=== PATIENT | male | born 1975 | race Asian ===

== ENCOUNTER 2016-12-14 11:27 | Emergency (ER) | payer OTHER ==
[2016-12-14] MEDS ORDERED: Ketorolac INJ* 30 MG/ML 1 ML VIAL IV PUSH ONE (13:12)
[2016-12-14] MEDS ORDERED: HYDROmorphone INJ* 1 MG/ML CARPUJECT SYRINGE IV SLOW PU ONE (13:17)
[2016-12-14] MEDS ORDERED: Ondansetron INJ* 2 MG/ML VIAL IV ONE (13:17)
--- NOTE | 2016-12-14 13:18 | ED ---
GI/ HPI - HPI Summary HPI Summary: 41 M presents with R sided flank pain that radiates to the front since 8 am. He admits to nausea and vomiting. He denies any diarrhea or constipation. He has not been able to urinate since the pain started. He said the pain radiates to his RLQ. He has experienced this pain in the same area a month ago that went away with a bath. He has had no previous abdominal surgeries. There is a language barrier present as he speaks romanian. - History of Current Complaint Chief Complaint: EDFlankPain Time Seen by Provider: 12/14/16 13:11 Stated Complaint: RIGHT FLANK PAIN Pain Intensity: 10 - Allergy/Home Medications Allergies/Adverse Reactions: Allergies Allergy/AdvReac Type Severity Reaction Status Date / Time No Known Allergies Allergy Verified 12/14/16 11:33 PMH/Surg Hx/FS Hx/Imm Hx Endocrine/Hematology History: Denies: Hx Anticoagulant Therapy Cardiovascular History: Denies: Hx Hypertension Infectious Disease History: No Infectious Disease History: Denies: Traveled Outside the [place] in Last 30 Days Review of Systems Negative: Fever Negative: Chest Pain Negative: Shortness Of Breath Positive: Abdominal Pain - RLQ, Vomiting, Nausea. Negative: Diarrhea Positive: flank pain - right sided All Other Systems Reviewed And Are Negative: Yes Physical Exam Triage Information Reviewed: Yes Vital Signs On Initial Exam: Initial Vitals Temp Pulse Resp BP Pulse Ox 97.0 F 81 18 122/82 100 12/14/16 11:29 12/14/16 11:29 12/14/16 11:29 12/14/16 11:29 12/14/16 11:29 Vital Signs Reviewed: Yes Appearance: Positive: Pain Distress Skin: Positive: Warm, Dry Head/Face: Positive: Normal Head/Face Inspection Eyes: Positive: Normal, Conjunctiva Clear ENT: Positive: Normal ENT inspection, Pharynx normal, TMs normal Respiratory/Lung Sounds: Positive: Clear to Auscultation, Breath Sounds Present Cardiovascular: Positive: Normal, RRR Abdomen Description: Positive: Soft, CVA Tenderness (R), Other: - mild tendereness in RLQ, neg obturator, psoas,. Negative: Distended, Guarding Diagnostics - Vital Signs Vital Signs Temp Pulse Resp BP Pulse Ox 12/14/16 11:29 97.0 F 81 18 122/82 100 - Laboratory Result Diagrams: 12/14/16 13:05 12/14/16 13:05 Lab Statement: Any lab studies that have been ordered have been reviewed, and results considered in the medical decision making process. - CT ab CT Interpretation: Positive (See Comments) - IMPRESSION: THERE ARE MULTIPLE SMALL BILATERAL RENAL CALCULI. IN ADDITION THERE IS A 4 MM CALCULUS IN THE DISTAL RIGHT URETER CAUSING [id number] HYDRONEPHROSIS. CT Interpretation Completed By: Radiologist Re-Evaluation - Re-Evaluation First Eval Re-Evaluation Time: 13:59 Change: Improved Comment: pain is gone, explained CT results Second Eval Re-Evaluation Time: 14:59 Change: Unchanged Comment: pain still gone, still unable to urinate Third Eval Re-Evaluation Time: 16:08 Change: Unchanged Comment: patient finally able to urinate, pain starting to return GIGU Course/Dx - Course Course Of Treatment: 41 M w/ no PMH presents with right sided flank pain since this morning. Admits to nausea and vomiting. has not been able to urinate, states pain radiates to the front in RLQ, ordered labs: WBC elevated but crp normal, CT abdomen: showed 4 mm kidney stone, normal appendix, pain managed with dialudid and toradol and zofran, unable to uriante gave 3 liters and was able to go, u/a normal will be d/c home, questions answered, patient and family agrees with plan - Diagnoses Differential Diagnoses - Male: Appendicitis, Ureteral Calculi, Urinary Tract Infection Provider Diagnoses: Kidney stone on right side Discharge - Discharge Plan Condition: Good Disposition: HOME Prescriptions: Ondansetron TAB* [Zofran Tab*] 4 mg PO Q6H PRN #16 tab PRN Reason: Nausea Tamsulosin CAP* [Flomax CAP*] 0.4 mg PO DAILY #7 cap oxyCODONE/Acetamin 5/325 MG* [Percocet 5/325 TAB*] 1 tab PO Q6H PRN #16 tab MDD 4 PRN Reason: Pain Patient Education Materials: Oxycodone/Acetaminophen (By mouth), Kidney Stones (ED) Referrals: Rupesh Robbins MD [Medical Doctor] - Additional Instructions: Take ibuprofen every 6 hours and narcotic as needed every 6 hours Inc fiber intake Take Zofran every 6 hours for nausea Take Flomax daily starting tomorrow, first dose given in ED until stone expelled , make sure stand up slowly Follow up with urology after stone passes Return to ED if unable to manage pain at home, develop fever, or any new or worsening symptoms
[2016-12-14] MEDS: NS 0.9% 1000 ML* 2,000 ML IV ONE (13:26)
[2016-12-14 13:29] LABS: ALT 18 U/L (7-52); AST 14 U/L (13-39); Albumin 4.2 g/dL (3.2-5.2); Alkaline Phosphatase 50 U/L (34-104); Anion Gap 9 mmol/L (2-11); BUN/Creatinine Ratio 9.4 (8-20); Blood Urea Nitrogen 12 mg/dL (6-24); CO2 Carbon Dioxide 27 mmol/L (22-32); Calcium 9.4 mg/dL (8.6-10.3); Chloride 102 mmol/L (101-111); EGFR African American 80.8 (>60); EGFR Non-African American 62.8 (>60); Globulin 2.8 g/dL (2-4); Glucose 123 mg/dL (70-100); Potassium 3.7 mmol/L (3.5-5.0); Sodium 138 mmol/L (133-145)
[2016-12-14 13:41] LABS: Hematocrit 46 % (42-52); Mean Corpuscular HGB Conc 33 g/dl (31-36); Mean Corpuscular Hemoglobin 28 pg (27-31); Mean Corpuscular Volume 85 fL (80-94); Mean Platelet Volume 8 um3 (7.4-10.4); Red Blood Count 5.39 10^6/ul (4.0-5.4); Red Cell Distribution Width 13 % (10.5-15); White Blood Count 13.8 10^3/ul (3.5-10.8)
--- NOTE | 2016-12-14 13:49 | RAD ---
INDICATION: Right flank abdominal pain. COMPARISON: There are no prior studies available for comparison. TECHNIQUE: A CT scan of the abdomen and pelvis was performed without intravenous or oral contrast. Contiguous axial sections were obtained from the lung bases through the symphysis pubis. Images were reconstructed in the coronal and sagittal planes. FINDINGS: There is mild dependent bilateral lower lobe subsegmental atelectasis. No pleural effusion is present. The liver and spleen are within normal limits in size without significant focal abnormality on this noncontrast study. No calcified gallstones are seen. The pancreas appears to be within normal limits in size. The adrenal glands appear to be within normal limits. There are multiple small bilateral renal calculi measuring between 1 and 3 mm. The right kidney is mildly enlarged. There is mild right perinephric stranding. There is dilatation of the right renal calyces pelvis and ureter to the level of a 4 mm calculus in the distal right ureter approximately 3 cm proximal to the ureterovesical junction. No bladder calculi are seen. The prostate gland is slightly enlarged measuring 5.2 cm in transverse dimension. The seminal vesicles are symmetrically enlarged bilaterally. The aorta is normal in caliber without significant calcific plaque. No significant enlarged retroperitoneal lymph nodes are seen. The stomach, small and large bowel appear nondistended. The appendix is within normal limits. There is no evidence for diverticulitis or colitis. No free intraperitoneal air or fluid is seen. No significant focal osseous abnormality is seen. IMPRESSION: THERE ARE MULTIPLE SMALL BILATERAL RENAL CALCULI. IN ADDITION THERE IS A 4 MM CALCULUS IN THE DISTAL RIGHT URETER CAUSING [id number] HYDRONEPHROSIS.
[2016-12-14] MEDS ORDERED: Tamsulosin CAP* 0.4 MG PO ONE (14:14)
[2016-12-14] MEDS ORDERED: NS 0.9% 1000 ML* 2,000 ML IV ONE (15:18)
[2016-12-14] MEDS ORDERED: NS 0.9% 1000 ML* 1,000 ML IV ONE (15:19)
[2016-12-14 16:01] LABS: Urine Bilirubin Negative (Negative); Urine Glucose Negative (Negative); Urine Nitrite Negative (Negative)
[2016-12-14] MEDS ORDERED: oxyCODONE/Acetamin 5/325 MG* TAB PO ONE (16:05)
[2016-12-14 16:35] VITALS: BP 121/78
== END 2016-12-14 16:33 | disposition home or self-care (01) ==
LOC: ED 11:27
DX: N20.0 Calculus of kidney (principal); R10.31 Right lower quadrant pain; R11.2 Nausea with vomiting, unspecified
CPT/HCPCS: 36415; 74176; 80053; 81003; 85025; 86141; 96374; 96375; 99283; A9270-GY; J1170; J1885; J2405

== ENCOUNTER → 2017-01-23 12:19 | Day surgery (SDC) | payer OTHER ==
--- NOTE | 2017-01-22 12:39 | HP ---
ADMITTING HISTORY AND PHYSICAL: DATE OF ADMISSION: 01/23/17 ADMITTING DIAGNOSES: 1. Calculus, right ureter. 2. Right hydronephrosis. PLANNED PROCEDURE: Right ureteroscopy, possible laser and stent insertion. SURGEON: Rupesh Robbins MD. 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 He had originally been scheduled for ureteroscopy in November, but thought at that time that he had passed the stone and the surgery was canceled. He then restarted having pain again and followup ultrasound revealed a 6 to 7 mm calculus in the right ureter. He has been on Flomax 0.4 mg in an effort to try and promote expulsion of the calculus, but the most recent ultrasound on January 22 revealed a persistent 7 mm calculus in the right distal ureter with right hydronephrosis. He was given the option of continuing conservative management, but as this has been going on for 4 to 6 weeks, he is now being brought in for right ureteroscopy, possible laser and stent insertion. PAST MEDICAL HISTORY: Unremarkable. Specifically, there is no history of diabetes mellitus or any other major systemic illness. MEDICATIONS: Medications on admission at this point is ibuprofen p.r.n. ALLERGIES: No known drug allergies. PAST SURGICAL HISTORY: Unremarkable. FAMILY HISTORY: Negative for kidney stones. SMOKING HISTORY: He is a nonsmoker. PHYSICAL EXAMINATION GENERAL: Reveals a pleasant healthy-appearing gentleman. VITAL SIGNS: Blood pressure 102/68, pulse 78 per minute, regular, temperature 97.3, oxygen saturation 97% on room air. CARDIOVASCULAR EXAM: Regular rate and rhythm. S1, S2. LUNGS: Clear bilaterally. ABDOMEN: Soft with mild right flank tenderness. IMPRESSION: A 41-year-old gentleman with episodic right-sided flank and bladder pain for the last 4 to 5 weeks secondary to what appears to be a 7-mm calculus in the right distal ureter with mild right hydronephrosis. PLAN: Right ureteroscopy, possible laser and stent insertion. [id number]/[facility] #: [id number] MTDD
[~2017-01-23 12:19] MED LIST: Acetaminophen TAB* 325 MG PO PRN; Buffered Lidocaine 1% SYR 3ML* 3 ML/SYR SYRINGE INTRADERM ONE; Dexamethasone IV* 4 MG/ML 1 ML (4 MG) ONE; DiMENhydriNATE IV* 50 MG/ML VIAL IV PUSH PRN; Famotidine IV* 10 MG/ML 2 ML (20 mg) IV ONE; Famotidine IV* 10 MG/ML 2 ML (20 mg) ONE; HYDROmorphone INJ* 1 MG/ML CARPUJECT SYRINGE IV PRN; Iohexol 180 (CONTRAST) 10 ML SDV IV ONE; Ketorolac INJ* 30 MG/ML 1 ML VIAL ONE; Lidocaine 2% PF * 5 ML VIAL ONE; Midazolam* 1 MG/ML 5 ML VIAL (5 MG) ONE; Ondansetron INJ* 2 MG/ML VIAL ONE; Propofol* 10 MG/ML 20 ML BTL IV PUSH ONE; Tamsulosin CAP* 0.4 MG ONE; cefTRIAXone(*) 2 GM ADDV.VIAL IVPB ONE; fentaNYL* 50 MCG/ML 2 ML VIAL (100 MCG VIAL) ONE; oxyCODONE/Acetamin 5/325 MG* TAB PO PRN
--- NOTE | 2017-01-23 16:01 | RAD ---
INDICATION: Stent placement. COMPARISON: Comparison is made with a prior CT of the abdomen and pelvis from December 14, 2016. TECHNIQUE: 8 seconds of intermittent fluoroscopic guidance were provided and 6 spot films of the abdomen were centered on the right side. FINDINGS: There is partial opacification of the right renal collecting system. Subsequently there is placement of a double-J stent catheter on the right side which demonstrates normal course. IMPRESSION: INTRAOPERATIVE CONTROL FILMS. CPT II Codes: 6045F
[2017-01-23 16:09] VITALS: BP 135/71
--- NOTE | 2017-01-23 17:25 | RAD ---
Indication: Post RIGHT ureteral stent placement. Comparison: January 15, 2017 0928 hours abdomen radiograph. Technique: Supine abdomen. REPORT AND IMPRESSION: RIGHT ureteral stent in place. No radiographic conspicuous urolithiasis. Typical partial obscuration of the renal fossa due to bowel contents. Unremarkable soft tissue contours.
--- NOTE | 2017-01-24 12:32 | OP ---
DATE OF OPERATION: 01/23/17 - SDS DATE OF : [birth year] - AGE: 41 years, male. SURGEON: Rupesh Robbins MD. ANESTHESIOLOGIST: Dr. Rader. ANESTHESIA: General. PRE-OP DIAGNOSES: 1. Right hydronephrosis. 2. Calculus, right ureter. POST-OP DIAGNOSES: 1. Right hydronephrosis. 2. Calculus, right ureter. OPERATIVE PROCEDURE: Cystoscopy, right retrograde pyelogram, right ureteroscopy and laser lithotripsy of right ureteral calculus and removal of calculus fragments and right stent insertion. COMPLICATIONS: None. STENTS USED: 6-Guyanese stent, right ureter. OPERATIVE FINDINGS: 1. Approximately 7 to 8 mm calculus impacted at right ureterovesical junction with significant surrounding soft tissue swelling and inflammation. 2. Right hydronephrosis. POSTOPERATIVE CONDITION: Stable. 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 He had been managed conservatively and had been on Flomax for a while and continues to have a persistent calculus measuring 7 mm in the right distal ureter. PROCEDURE: After induction of general anesthesia, the patient was placed in dorsal lithotomy position. Sequential compression devices were in place and functioning. 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 The bladder was examined. The left orifice was normal. There was significant soft tissue swelling on the right side of the trigone, and I could see the very tip of the calculus through the orifice. A guidewire was introduced and after some initial manipulation, was advanced proximally. There was significant hydronephrotic drip noted after the wire was advanced beyond the point of obstruction. Retrograde pyelogram revealed hydronephrosis and proximal hydroureter. A 6-Guyanese semirigid ureteroscope was introduced and advanced under direct vision. Just inside the ureterovesical junction, a 7 to 8 mm, irregular, sharp-edged calculus was noted. Using a 550-micron holmium laser, this was successfully fragmented into multiple fragments and all of the sizeable fragments were removed from the ureter. The ureteroscope was advanced to the level of the mid ureter to make sure there were no additional calculi and none were noted. A 6-Guyanese stent was introduced and positioned under fluoroscopy with good proximal and distal positioning obtained. Bladder was emptied. The patient tolerated the procedure satisfactorily and was transferred back to the recovery area in stable condition. [id number]/[facility] #: [id number] MTDD
== END | disposition home or self-care (01) ==
LOC: OR 12:19
PROVIDERS: ATTEND Urology
DX: N13.2 Hydronephrosis with renal and ureteral calculous obstruction (principal)
CPT/HCPCS: 74000; 74420; 82365; 88300; C1876; J0696; J1100; J1885; J2250; J2405; J2704; J3010